=== PATIENT | male | born 1995 | race Two or more races ===

== ENCOUNTER 2020-10-13 08:58 | Emergency (ER) | payer SELFPAY ==
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
== END 2020-10-13 10:16 | disposition home or self-care (01) ==
LOC: MW.ED 08:58
DX: R51.9 Headache, unspecified (principal)
CPT/HCPCS: 71045; 71045-26; 99284-25